=== PATIENT | male | born 1960 | race Caucasian/White ===

== ENCOUNTER 2024-01-13 16:57 | Emergency (ER) | payer MEDICAID, OTHER ==
[~2024-01-13] VITALS: Ht 175.3 cm; Wt 99.8 kg
[2024-01-13 17:11] VITALS: BP 115/7; PULSE 100; RESP 16; TEMP 98.4; O2SAT 98
== END 2024-01-13 19:24 | disposition left against medical advice (07) ==
LOC: ER 16:57
DX: M79.671 Pain in right foot (principal); M79.672 Pain in left foot; I50.9 Heart failure, unspecified; R45.1 Restlessness and agitation
CPT/HCPCS: 99281